=== PATIENT | female | born 1945 ===

== ENCOUNTER 2023-04-21 23:48 | Emergency (ER) | payer MEDICARE, MEDICAID, SELFPAY ==
--- NOTE | ~2023-04-21 | XR_ITS ---
EXAMINATION: XR abdomen/kub 1V INDICATION: Constipation TECHNIQUE: Supine views of the abdomen were obtained on 2 radiographs. COMPARISON: None FINDINGS: A large volume of colonic stool is present. There are no dilated loops of bowel. Right uppe r quadrant calcifications have the appearance of cholelithiasis. There is moderate osteoarthritis of the hips. There is severe lower lumbar spondylosis. IMPRESSION: 1. Constipation. Reviewed, dictated and finalized at location F. ATTENDANT IMPRESSION: 1. Constipation.
--- NOTE | ~2023-04-21 | CT_ITS ---
EXAMINATION: CT abdomen pelvis w con INDICATION: Constipation, lower abdominal cramping TECHNIQUE: Computed tomographic images of the abdomen and pelvis were obtained after the administrati on of 100 cc of Omnipaque 350 intravenous contrast. The dose-length product (DLP) was 1554.15 mGy-cm. Automated exposure control and iterative reconstruction technique were employed. COMPARISON: None available FINDINGS: Minimal dependent atelectasis is present in the lung bases. The heart size is normal. 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 There is a moderate to large volume of intramural thrombus in the visualized descending thoracic aor ta. Punctate calcifications in otherwise normal appearing liver and spleen likely represent healed gr anulomatous disease. Stones are present in the nondistended gallbladder. There is moderate atrophy of the pancreas and mild enlargement of pancreatic duct in the head of unclear etiology. Cysts of the k idneys measure up to 2.8 cm on the right. There is mild stranding near the left renal pelvis. There i s a 2 mm stone of the left kidney, possibly in an upper pole calyx. No pathologically enlarged abdomi nal or pelvic lymph nodes are identified. No free intraperitoneal gas or evidence of bowel obstructio n. An IUD is noted. A moderate volume of colonic stool is present. There is severe lumbar spondylosis . IMPRESSION: 1. 2 mm stone of the left kidney, possibly in an upper pole calyx, with mild fat stranding of the lef t renal pelvis. Finding could reflect intermittently obstructing stone. Recommend correlation with ur inalysis. 2. 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 Va scular surgical follow-up is recommended. 3. Cholelithiasis without evidence of cholecystitis. 4. Constipation. Reviewed, dictated and finalized at location F. ENT SERVICES REPRESENTATIVE IMPRESSION: 1. 2 mm stone of the left kidney, possibly in an upper pole calyx, with mild fa t stranding of the left renal pelvis. Finding could reflect intermittently obst ructing stone. Recommend correlation with urinalysis. 2. 6.1 cm fusiform aneurysm of the distal thoracic aorta with large volume of i ntramural thrombus. Vascular surgical follow-up is recommended. 3. Cholelithiasis without evidence of cholecystitis. 4. Constipation.
[2023-04-22] VITALS (8 sets, daily range): BP systolic 104–150; BP diastolic 62–83; PULSE 76–95; RESP 16–20; TEMP 36.6–36.7; O2SAT 96–100
[2023-04-22 01:42] LABS: Glucose Point of Care 178 mg/dl (65-105)
[2023-04-22 06:14] LABS: Basophils Absolute Auto 0.1 K/mm3 (0.0-0.1); Basophils Percent Auto 0.7 % (0.2-1.2); Eosinophils Absolute Auto 0.1 K/mm3 (0-0.3); Eosinophils Percent Auto 1.6 % (0-4.4); Hematocrit 41.2 % (37.0-47.0); Hemoglobin 13.5 g/dL (12.0-15.0); Immature Granulocyte Absolute 0.16 K/mm3 (0.00-0.031); Immature Granulocyte Percent A 1.8 % (0-0.5); Lymphocytes Absolute Auto 1.77 K/mm3 (0.9-3.2); Lymphocytes Percent Auto 19.6 % (18.3-44.2); Mean Corpuscular HGB Conc 32.8 g/dl (32-36); Mean Corpuscular Hemoglobin 32.2 pg (26-34); Mean Corpuscular Volume 98.3 fl (80-100); Mean Platelet Volume 9.7 fl (7.4-10.4); Monocytes Absolute Auto 0.8 K/mm3 (0.1-0.6); Monocytes Percent Auto 8.7 % (2.6-8.5); Neutrophils Absolute Auto 6.1 K/mm3 (1.3-6.7); Neutrophils Percent Auto 67.6 % (45.5-73.1); Platelet Count Result 167 k/mm3 (150-375); Red Blood Count 4.19 M/mm3 (4.2-5.4); Red Cell Distribution Width 13.4 % (11.5-14.5)
[2023-04-22 06:24] LABS: Alanine Aminotransferase 19 U/L (6-35); Albumin Level 3.6 g/dL (3.5-5.1); Alkaline Phosphatase 105 U/L (38-126); Anion Gap 4 mmol/L (8-16); Aspartate Amino Transferase 24 U/L (14-36); Bilirubin,Total 0.6 mg/dL (0.2-1.3); Blood Urea Nitrogen 32 mg/dL (7-17); Carbon Dioxide 30 mmol/L (22-30); Chloride 101 mmol/L (98-107); Estimated CRCL calculation 59 ml/min; Estimated Glomerular Filt Rate 54; Glucose 200 mg/dL (65-110); Potassium 4.6 mmol/L (3.4-5.0); Sodium 135 mmol/L (137-145)
--- NOTE | 2023-04-22 07:21 | ED.GENADULT ---
HPI - General Adult General Chief complaint: Unspecified Stated complaint: constipation 3 days Time Seen by Provider: 04/22/23 07:17 Source: patient and EMS Mode of arrival: EMS History of Present Illness HPI narrative: Patient came from assisting living with no bowel movement for the last 4 days. Causing abdominal pain and rectal pain. History of diabetes, hypertension, hyperlipidemia, COPD, lymphoma, leukemia, ovarian cancer. She denies any fever, chills, nausea or vomiting Related Data Allergies Allergy/AdvReac Type Severity Reaction Status Date / Time Penicillins Allergy Intermediate Rash Verified 04/22/23 07:19 Review of Systems Review of Systems: All systems reviewed & are unremarkable except as noted in HPI and below PMFSH Social History Social History Smoking status: Never smoker Exam Narrative: General appearance: Well-developed, well-nourished Skin: Normal color Head: Normocephalic, nontraumatic Eyes: Clear conjunctiva ENT: Oropharynx normal, ears normal, nose normal Neck: Supple, nontender Chest and respiratory: Airway patent, no respiratory distress, no accessory muscle use Heart: Regular rate/rhythm Abdomen: Soft, diffuse abdominal tenderness, no organomegaly, quiet bowel sounds Vascular: Normal peripheral pulses, normal capillary refill. Musculoskeletal: Normal range of motion, nontender back Neurologic: Alert and oriented ?3, [employer] is normal as tested, no gross motor deficit Course Consultations Consultation #1: Dr. Matias, thoracic surgeon add [facility] who accepted patient transfer Date: 04/22/23 Time: 09:59 Consultation #2: Dr. Raza/ED at [facility] who accepted patient transfer Date: 04/22/23 Vital Signs Vital signs: Vital Signs Temperature 36.7 C 04/22/23 00:26 Pulse Rate 85 04/22/23 00:26 Respiratory Rate 16 04/22/23 00:26 Blood Pressure 115/67 04/22/23 00:26 Pulse Oximetry 98 04/22/23 00:26 Oxygen Delivery Room Air 04/22/23 00:26 Temperature 36.7 C 04/22/23 00:26 Pulse Rate 82 04/22/23 07:17 Respiratory Rate 17 04/22/23 07:17 Blood Pressure 147/83 H 04/22/23 07:17 Pulse Oximetry 100 04/22/23 07:17 Oxygen Delivery Room Air 04/22/23 00:26 Medical Decision Making MDM Narrative Medical decision making narrative: Differential diagnosis include constipation, urinary tract infection, colitis, intra-abdominal malignancy, diverticulitis Workup today showed normal blood count, CT abdomen and pelvis with IV contrast showed 6 0.1 cm fusiform distal thoracic aneurysm. Was 4.14 February 2023. Patient abdominal pain could be secondary to constipation and or aneurysm or both. The aneurysm increase did 1.6 cm over the last 2 months. Patient usually go to [facility], I spoke to Dr. Leonard the vascular surgeon on-call who accepted patient transferred to the ED. discussed with Dr. Raza the ED physician. Patient blood pressure right now is 147/83, is below bolus and drip started to keep systolic blood pressure around 110 and diastolic around 60. Vital Signs Vital Signs: Vital Signs Temperature 36.7 C 04/22/23 00:26 Pulse Rate 85 04/22/23 00:26 Respiratory Rate 16 04/22/23 00:26 Blood Pressure 115/67 04/22/23 00:26 Pulse Oximetry 98 04/22/23 00:26 Oxygen Delivery Room Air 04/22/23 00:26 Temperature 36.7 C 04/22/23 00:26 Pulse Rate 82 04/22/23 07:17 Respiratory Rate 17 04/22/23 07:17 Blood Pressure 147/83 H 04/22/23 07:17 Pulse Oximetry 100 04/22/23 07:17 Oxygen Delivery Room Air 04/22/23 00:26 Lab Data 04/22/23 06:06 04/22/23 06:06
[2023-04-22] MEDS: SODIUM CHLORIDE 0.9% IV 1,000 ML 999 ML IV CONT (07:44)
[2023-04-22] MEDS: HYDROmorphone HCL INJ (*CRX) 1 MG/ML SYR 0.5 MG IV PUSH (07:47)
[2023-04-22] MEDS: ONDANSETRON INJ 4 MG/2 ML VIAL IV PUSH (07:47)
[2023-04-22 09:42] LABS: Glucose Point of Care 174 mg/dl (65-105)
[2023-04-22] MEDS: ESMOLOL HCL 2,500 MG/250 ML 2,500 MG/250 ML BAG 38.31 MG IV CONT (10:28)
[2023-04-22] MEDS: ESMOLOL HCL 100 MG/10 ML VIAL 40 MG IV PUSH (10:50)
--- NOTE | 2023-04-22 11:05 | PC.NURSE ---
Pt being transfer with IV medications infusing.
== END 2023-04-22 11:04 | disposition short-term general hospital (02) ==
PROVIDERS: Emergency Medicine; Emergency Provider Emergency Medicine; PCP Family Medicine
DX: I71.20 Thoracic aortic aneurysm, without rupture, unspecified (principal); K59.00 Constipation, unspecified; J44.9 Chronic obstructive pulmonary disease, unspecified; I10 Essential (primary) hypertension; E11.9 Type 2 diabetes mellitus without complications; E78.5 Hyperlipidemia, unspecified; Z85.72 Personal history of non-Hodgkin lymphomas; Z85.6 Personal history of leukemia; Z85.43 Personal history of malignant neoplasm of ovary; N20.0 Calculus of kidney; K80.20 Calculus of gallbladder without cholecystitis without obstruction
CPT/HCPCS: 36415; 74018; 74177; 80053; 82948; 85025; 96361; 96365; 96375; 99285; J1170; J2405; J7030; Q9967